=== PATIENT | male | born 1990 | race Caucasian/White ===

== ENCOUNTER → 2021-02-05 07:36 | Outpatient (BNVA) | payer OTHER, SELFPAY | PROVIDERS: Visit Provider Internal Medicine | DX: M25.812 Other specified joint disorders, left shoulder (principal) | CPT/HCPCS: 99202 ==

== ENCOUNTER → 2021-02-13 09:05 | Outpatient (BNVA) | payer OTHER, SELFPAY | PROVIDERS: Visit Provider Internal Medicine | DX: M25.812 Other specified joint disorders, left shoulder (principal) | CPT/HCPCS: 99213 ==

== ENCOUNTER → 2021-08-07 14:37 | Outpatient (BNVA) | payer SELFPAY | PROVIDERS: PCP Hospitalist; Visit Provider Internal Medicine | DX: Z02.79 Encounter for issue of other medical certificate (principal) ==

== ENCOUNTER 2024-05-22 06:57 | Day surgery (SDC) | payer BC, SELFPAY ==
[2024-05-18 15:51] VITALS: BMI 32.1
[2024-05-22 07:10] VITALS: BP 140/99; PULSE 62; RESP 18; TEMP 36.2; O2SAT 97; BMI 32.1
[2024-05-22] MEDS: Lactated Ringers 1,000 ML 100 ML IVCONT (07:30)
--- NOTE | 2024-05-22 09:10 | P.CONAN_ITS ---
Documented by User: Sridevi Braden NP 05/21/24 09:33 HPI - Anesthesia Eval Consult details Narrative: 33yo M for Upper Endoscopy with Balloon Dilitation [facility] Active Problems Active Problems: All Active Problems Stomatitis (Acute) Past Medical History Medical History (Updated 05/22/24 @ 07:24 by Stefany Kearns, RN) Bradycardia Difficulty swallowing Nonalcoholic steatohepatitis Eosinophilic esophagitis GERD (gastroesophageal reflux disease) Surgical History Surgical History (Updated 05/18/24 @ 15:50 by Nurys Fields RN) History of esophagogastroduodenoscopy (EGD) Social History Social History Patient Tobacco Use Status: Never used Tobacco Have you been hit, kicked, punched, or otherwise hurt by someone within the past year? If so, by whom?: No Are you DNR?: No Advance Directives: No Advance Directives Information Provided: Yes Meds Allergies Allergy/AdvReac Type Severity Reaction Status Date / Time No Known Allergies Allergy Verified 03/08/21 12:00 Home Medications ?Medication ?Instructions ?Recorded ?Confirmed ?Last Taken ?Type lansoprazole 30 mg capsule,delayed 30 mg PO BID 05/18/24 05/18/24 Unknown History release Exam Height,Weight and Vital Signs: Height 6 ft 4 in Weight 119.748 kg Assessment and Plan Assessment Anesthesia Assessment: Chart Reviewed Documented by User: Loli Beaulieu DO 05/22/24 09:14 [facility] Past Medical History Medical History (Updated 05/22/24 @ 07:24 by Stefany Kearns RN) Bradycardia Difficulty swallowing Nonalcoholic steatohepatitis Eosinophilic esophagitis GERD (gastroesophageal reflux disease) Family History Family history of problems with anesthesia: No Surgical History Surgical History (Updated 05/18/24 @ 15:50 by Nurys Fields RN) History of esophagogastroduodenoscopy (EGD) History of Problems with Anesthesia: No Social History Social History Patient Tobacco Use Status: Never used Tobacco Have you been hit, kicked, punched, or otherwise hurt by someone within the past year? If so, by whom?: No Are you DNR?: No Advance Directives: No Advance Directives Information Provided: Yes Meds Allergies Allergy/AdvReac Type Severity Reaction Status Date / Time No Known Allergies Allergy Verified 03/08/21 12:00 Home Medications ?Medication ?Instructions ?Recorded ?Confirmed ?Last Taken ?Type lansoprazole 30 mg capsule,delayed 30 mg PO BID 05/18/24 05/18/24 Unknown History release Exam Exam Date and Time: 05/22/24 0910 Height,Weight and Vital Signs: Height 6 ft 4 in Weight 119.748 kg Vital Signs Temperature 97.1 F 05/22/24 07:10 Pulse Rate 62 05/22/24 07:10 Respiratory Rate 18 05/22/24 07:10 Blood Pressure 140/99 H 05/22/24 07:10 Pulse Oximetry 97 05/22/24 07:10 Oxygen Delivery Method Room Air 05/22/24 07:10 Temperature 97.1 F 05/22/24 07:10 Pulse Rate 62 05/22/24 07:10 Respiratory Rate 18 05/22/24 07:10 Blood Pressure 140/99 H 05/22/24 07:10 Pulse Oximetry 97 05/22/24 07:10 Oxygen Delivery Method Room Air 05/22/24 07:10 Airway Mallampati Class: I TM Dist: >3cm Neck ROM: Full Loose/Missing/Broken Teeth: No (patient denies any loose or broken teeth) Heart: S1S2 Lungs: CTAB Assessment and Plan Assessment Anesthesia Assessment: Anesthesia Plan Discussed and Chart Reviewed Final Anesthetic Review Family History of Problems with Anesthesia: No History of Problems with Anesthesia: No NPO: Yes ASA Class: II Final Preanesthetic Review: No Changes in Pt Med Stat, Meds/Allgs Chart Reviewed, Consent Obtained/Reviewed and Anes Risks/Benef Reviewed Patient Risk: Low Procedure Risk: Low Anesthetic Plan Anesthetic Plan: MAC: and Agree w/ Assess. and Plan Disposition: Standard PACU
--- NOTE | 2024-05-22 09:13 | MHC.SHP ---
Pre-Procedural Eval Section A - 24 Hr Update-Section A only Date of Service: 05/22/24 Section B - Complete if H&P > 30 days Chief Complaint: Eosinophilic esophagitis Details of Present Illness: see H&P no changes Relevant Family History (Specify if Yes): No Relevant Social History: None Present Medications: see Short Stay Collaborative assessment Medical History: No relevant PMH History of Previous Operations: No relevant previous surgery Allergies: Allergies Allergy/AdvReac Type Severity Reaction Status Date / Time No Known Allergies Allergy Verified 03/08/21 12:00 Review of Systems Sugical H&P ROS: Negative: Constitution, Cardiovascular, Respiratory, Neurological, Psychiatric, Hem-Onc, Allergic/Immunologic, Gastrointestinal, Genitourinary, Musculoskeletal, Integumentary, Endocrine and Eyes/Ears/Nose/Throat Exam Surgical H&P Exam: Normal: HEENT, Normal: Heart, Normal: Lungs, Normal: Extremities, Normal: Abdomen, Normal: Skin and Normal: Neurological Plan Diagnosis/Plan: Unchanged I have reviewed the history and physical and performed a pertinent physical examination on my patient. No changes have occurred unless specified. Time Spent With Patient Time: Total time managing care of this patient today ____ minutes.
[2024-05-22 09:39] VITALS: BP 121/63; PULSE 65; RESP 16; TEMP 36.1; O2SAT 96
[2024-05-22 09:55] VITALS: BP 131/86; PULSE 66; RESP 17; TEMP 36.3; O2SAT 97
--- NOTE | 2024-05-22 10:20 | OP_ITS ---
DATE OF SERVICE: 05/22/2024 SURGEON: Kleber Guzman MD INDICATIONS: Eosinophilic esophagitis and dysphagia. PREOPERATIVE DIAGNOSIS: POSTOPERATIVE DIAGNOSIS: PROCEDURE PERFORMED: Upper endoscopy with balloon dilation and biopsy. ESTIMATED BLOOD LOSS: COMPLICATIONS: ANESTHESIA: Monitored anesthesia care. ASSISTANTS: SPECIMENS: DESCRIPTION OF PROCEDURE: A history and physical was performed. The risks and benefits of the procedure were explained to the patient and informed consent was obtained. The patient was placed in the left lateral decubitus position. The Olympus video gastroscope was introduced into the esophagus, stomach, and duodenum. Examination was performed and the scope was removed. He tolerated the procedure well and was returned to recovery area in stable condition. FINDINGS: Esophagus: The esophagus showed a ring-like appearance consistent with his known diagnosis of eosinophilic esophagitis. There was no esophagitis. The EG junction appeared patent. The scope passed into the stomach without difficulty. No definite stricture was identified. Stomach: The stomach showed no evidence of masses, ulcers, or polyps. Duodenum: The bulb and 2nd portion were normal. Balloon dilation of the lower esophageal sphincter was performed to 18 and 20 mm with separate inflations of a balloon passed through the scope and inflated to its recommended pressures for 60 seconds at a time. The distal esophagus was widely patent at the termination of the procedure. Biopsies were obtained from the EG junction. IMPRESSION: Eosinophilic esophagitis. RECOMMENDATION: Follow up the biopsy results. MD MOUNA Cole/MIRTHA / [id number]
== END 2024-05-22 10:07 | disposition home or self-care (01) ==
PROVIDERS: Visit Provider Internal Medicine Gastroenterology
PROC: (CPT 43249; principal; 2024-05-22 08:20)
DX: K20.0 Eosinophilic esophagitis (principal); R13.10 Dysphagia, unspecified; K21.9 Gastro-esophageal reflux disease without esophagitis; K75.81 Nonalcoholic steatohepatitis (NASH); R79.89 Other specified abnormal findings of blood chemistry; Z79.899 Other long term (current) drug therapy
CPT/HCPCS: 43249; 43239; 88305; 88313; C1726; J2704

== ENCOUNTER 2025-03-14 10:24 | Outpatient (AMB) | payer BC, SELFPAY ==
--- NOTE | 2025-03-14 10:31 | A.OFFPC_ITS ---
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 Accompanied by his , Rosa, and son, Garrick. 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 They would like labs done for fatigue. +Hair loss. Requests testosterone level. Requests referral for skin exam. He gets a lot of sun exposure as part of his job. Mother had skin cancer. Eye exam scheduled. Dental exam up to date. EOE-prescribed lansoprazole. Followed by Dr. Guzman. Received Tdap in 2019 after a dog bite. Remote history of asthma. He had right eye surgery in childhood for lazy eye. History of left clavicle fracture and left knee dislocated. He's had migraines since his 20s. Assoiated with nausea and light sensitivity. He must wear sunglasses at work. When he gets in his car to drive can't always use them because of the pressure on his head causing a migraine, but the sunlight from driving also does this. He has a form for window tinting he will get to the office. Takes Ibuprofen which is effective. Gets 2-3 mgiraines monthly. ROS: Constitutional: No unexplained weight loss, fever, chills or night sweats. Eyes: No vision changes, blurry vision, double vision, eye pain, eye redness, eye discharge. ENT: No hearing loss, sneezing, congestion, runny nose or sore throat. Respiratory: No shortness of breath, cough or sputum production. Cardiovascular: No chest pain, chest pressure or chest discomfort. No pal pitations or pedal edema. Gastrointestinal: No anorexia, nausea, vomiting or diarrhea. No abdominal pain or blood in stool. Genitourinary: No dysuria, hematuria, urinary frequency. Neurologic: No dizziness, syncope, unilateral weakness, ataxia, numbness or tingling in the extremities. Musculoskeletal: No muscle pain, back pain, joint pain or swelling. Hematologic/Lymphatics: No bleeding or bruising. No painful lymph nodes. Skin: No rash or itching. Endocrine: No cold or heat intolerance. No polyuria or polydipsia. Psychiatric: No depression or anxiety. No SI/HI. Physical exam: Constitutional: Alert, in no distress. Head: Normocephalic. Eyes: Pupils are equal, round and reactive to light. Extraocular muscles intact. Ear, Nose and Throat: Canals clear. TMs normal. Normal nasal mucosa. No nasal discharge. No oral lesions. Neck: Supple, Full range of motion. No lymphadenopathy. No palpable thyroid masses. Respiratory: Clear to auscultation. Cardiovascular: S1 S2 regular. No murmurs. Gastrointestinal: Abdomen soft, non-tender, non-distended. Normal bowel sounds. No palpable masses. Genitourinary: Deferred. Neurologic: No focal neurological deficits. Symmetric patellar reflexes. Moves a ll extremities spontaneously. Sensation intact bilaterally. Skin: Numerous freckles/miles on the arms and back. Musculoskeletal: No gross deformities. Normal range of motion. Extremities: Warm and well perfused. No clubbing, cyanosis or edema. Intact peripheral pulses bilaterally. Psychiatric: Normal mood and affect [facility] Medical History (Updated 03/14/25 @ 22:04 by ALISON Willams) Migraines Fatigue Screening for cardiovascular condition Routine physical examination Fatty liver Bradycardia Difficulty swallowing Nonalcoholic steatohepatitis Eosinophilic esophagitis GERD (gastroesophageal reflux disease) Surgical History (Updated 05/18/24 @ 15:50 by Nurys Fields RN) History of esophagogastroduodenoscopy (EGD) Family History (Updated 03/14/25 @ 10:51 by ALISON Willams) Maternal Grandmother Diabetes Alzheimer dementia Maternal Grandfather Stroke Lung cancer Paternal Grandfather Heart attack Brother Thyroid disease Father Colon polyp Social History (Updated 03/14/25 @ 10:39 by Yarelis Smith MA) Housing: House Alcohol intake: current Alcohol intake frequency: does not drink Patient Tobacco Use Status: Never used Tobacco e-Cigarette/Vaping Use: Never Used Second Hand Smoke Exposure: No service: No Current occupational status: employed 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 1. Little interest or pleasure in doing things: not at all 2. Feeling down, depressed, or hopeless: not at all 3. Trouble falling or staying asleep, or sleeping too much: not at all 4. Feeling tired or having little energy: not at all 5. Poor appetite or overeating: not at all 6. Feeling bad about yourself - or that you are a failure or have let yourself or your family down: not at all 7. Trouble concentrating on things, such as reading the newspaper or watching television: not at all 8. Moving or speaking so slowly that other people could have noticed. Or the opposite - being so fidgety or restless that you have been moving around a lot more than usual: not at all 9. Thoughts that you would be better off or of hurting yourself in some way: not at all Total score: 0 Depression Screening Interpretation: Negative Depression Screening Done: Yes 98404 - PHQ-9 Billing: Yes Source: Developed by Drs. Titi Gee, Nichelle Coon, Stephen Vidal and colleagues, with an educational toyin from [employer]. Thrive Questionnaire Date Thrive assessed: 03/14/25 I am a: Patient What is your living situation today?: I have a steady place to live Within the past 12 months, did the food you bought not last and you didn't have the money to get more?: Never true Within the past 12 months, did you worry whether your food would run out before you got money to buy more?: Never true Do you have trouble paying for medicines?: No Do you have trouble getting transportation to medical appointments?: No Do you have trouble paying your heating and electricity bill?: No Do you have trouble taking care of your child, family member or friend?: No Do you have trouble with day-to-day activities such as bathing, preparing meals, shopping, managing finances, etc.?: No Are you currently unemployed and looking for a job?: No Are you interested in more education?: No Please select the resources that you would like help with: None Currently or been in a relationship where the following occur: No concerns reported THRIVE Score: 0 AUDIT C Alcohol Use Questionnaire (AUDIT-C) 1. How often do you have a drink containing alcohol?: Monthly or less 2. How many drinks containing alcohol do you have on a typical day when you are drinking?: 1 or 2 3. How often do you have six or more drinks on one occasion?: Never Total Score: 1 ROME-7 AMB Questionnaire ROME-7 Date ROME - 7 assessed: 03/14/25 Feeling nervous, anxious, or on edge: 0 = Not at all Not being able to stop or control worryin = Not at all Worrying too much about different things: 0 = Not at all Trouble relaxin = Not at all Being so restless that it is hard to sit still: 0 = Not at all Becoming easily annoyed or irritable: 0 = Not at all Feeling afraid as if something awful might happen: 0 = Not at all Total ROME-7 score (0-4 normal; 5-9 mild; 10-14 moderate; 15-21 severe): 0 Source: Developed by Drs. Titi Gee, Nichelle Coon, Stephen Vidal and colleagues, with an educational toyin from [employer]. ROME-7 Assessment Billing ROME-7 Assessment Tool: ROME-7 Assessment 80099 Physical exam (Primary Care) Vital Signs: Last Vital Signs Temp 97.6 F 03/14/25 10:39 Pulse 66 03/14/25 10:39 BP 110/72 03/14/25 10:39 Pulse Ox 97 03/14/25 10:39 Oxygen Delivery Method Room Air 03/14/25 10:39 BMI result Body Mass Index 32.9 Tobacco/Smoking Status: Tobacco use Status Tobacco use date assessed 03/14/25 03/14/25 10:44 Patient Tobacco Use Status Never used Tobacco 03/14/25 10:39 e-Cigarette/Vaping Use Never Used 03/14/25 10:44 PHQ-9: PHQ-9 Score PHQ-9: Total score 0 03/14/25 10:46 Depression Screening Interpretation: Negative Thrive Assessment: Date of Thrive Assessment Date Thrive assessed 03/14/25 03/14/25 10:34 Currently or been in a relationship where the following occur: No concerns reported Coding Level of Care Code New Pt Level 2 (80942) New Pt Prev Care 18-39yr(79687 Diagnoses Routine physical examination Z00.00 Screening for cardiovascular condition Z13.6 Chronic fatigue R53.82 Fatigue type: chronic, unspecified Migraine without aura and without status migrainosus, not intractable G43.009 Migraine type: migraine (< 15 days per month) without aura Status migrainosus presence: without status migrainosus Intractability: not intractable Eosinophilic esophagitis K20.0 Additional Codes ROME-7 Assessment Billing - ROME-7 Assessment Tool: ROME-7 Assessment 57182 ([id number]) PHQ-9 - 62500 - PHQ-9 Billing: Yes ([id number]) Assessment & Plan Assessment & Plan (1) Routine physical examination: Code(s): Z00.00 - Encounter for general adult medical examination without abnormal findings Category: Medical Plan: Patient is seen today for a routine physical. As part of this visit we reviewed the following issues, which are considered and essential part of preventative health in this age group: - Testicular cancer screening, which includes self exam teaching - Screening for colon cancer - Blood pressure screening annually - Cholesterol screening - Nutritional and exercise counseling - Counseling of injury prevention including fire prevention, smoke alarms and seat belt usage - Screening for depression - Education about skin cancer - Recommendations about immunizations - Recommendation of an eye exam - Screening for substance abuse (2) Screening for cardiovascular condition: Code(s): Z13.6 - Encounter for screening for cardiovascular disorders Category: Medical (3) Fatigue: Code(s): R53.83 - Other fatigue Category: Medical Qualifiers: Fatigue type: chronic, unspecified Qualified Code(s): R53.82 - Chronic fatigue, unspecified Plan: Check labs. (4) Migraines: Code(s): G43.909 - Migraine, unspecified, not intractable, without status migrainosus Category: Medical Qualifiers: Migraine type: migraine (< 15 days per month) without aura Status migrainosus presence: without status migrainosus Intractability: not intractable Qualified Code(s): G43.009 - Migraine without aura, not intractable, without status migrainosus Plan: Continue Ibuprofen which is effective. Stressed importance of sleep, hydration, nutrition. He will drop of the form for tinting windows at the office. (5) Eosinophilic esophagitis: Code(s): K20.0 - Eosinophilic esophagitis Category: Medical Plan: Continue PPI. Followed by GI. Plan Follow up in 1 year for CPE. Orders: Orders Complete Blood Count Auto Diff Today R53.83 - Other fatigue, Z00.00 - Encounter for general adult medical examination without abnormal findings, Z13.6 - Encounter for screening for cardiovascular disorders Testosterone, Free/Total Today R53.83 - Other fatigue, Z00.00 - Encounter for general adult medical examination without abnormal findings, Z13.6 - Encounter for screening for cardiovascular disorders Vitamin D 25-OH (D2 and D3) Today M85.80 - Other specified disorders of bone density and structure, unspecified site, R53.83 - Other fatigue, Z00.00 - Encounter for general adult medical examination without abnormal findings, Z13.6 - Encounter for screening for cardiovascular disorders Vitamin B12 and Folate Today D64.9 - Anemia, unspecified, R53.83 - Other fatigue, Z00.00 - Encounter for general adult medical examination without abnormal findings, Z13.6 - Encounter for screening for cardiovascular disorders Lipid Panel Today E78.5 - Hyperlipidemia, unspecified, R53.83 - Other fatigue, Z00.00 - Encounter for general adult medical examination without abnormal findings, Z13.6 - Encounter for screening for cardiovascular disorders TSH reflex Free T4 Today R53.83 - Other fatigue, Z00.00 - Encounter for general adult medical examination without abnormal findings, Z13.6 - Encounter for scree arjun for cardiovascular disorders Comprehensive Met. Panel Today R53.83 - Other fatigue, Z00.00 - Encounter for general adult medical examination without abnormal findings, Z13.6 - Encounter for screening for cardiovascular disorders
[2025-03-14 10:39] VITALS: BP 110/72; PULSE 66; TEMP 36.4; O2SAT 97; BMI 32.9
--- OUTSIDE RECORDS SUMMARY | 2025-03-14 11:13 | XMS_ITS | Patient Health Record ---
Author Organization [facility] Address [address] [place] [phone] Care Team Providers Care Music Orchestrator Name Role Phone Raleigh Jacinto Primary Care Provider Kleber De León Jr Unavailable [phone] Allergies No Known Allergies Results Component Value Reference Range Notes Pathology Reviewed date:05/31/2024 11:09:57 AM Interpretation: Performing Lab:[facility], [address] [place] [phone] Notes/Report: Reason For Referral No Information Medications Medication SIG (Take, Route, Fr equency, Duration) Notes Start Date End Date Status Lansoprazole 30 MG 1 capsule before a m eal Orally Twice a day for 30 day(s) 03/28/2024 Active Lansoprazole 30 MG 1 capsule before a m eal Orally Once a day for 30 day(s) Active Immunizations Vaccine Route Administration Date Status Comme nts Influenza Unknown 03/28/2024 Refused Social History Tobacco Use: Social History Observation Description Date Details (start date - stop date) Never Smoker NA - NA Tobacco Use/Smoking Question Answer Notes Patient is a nonsmoker Alcohol Screen Question Answer Notes Did you have a drink contain ing alcohol in the past year? Yes How often did you have a dri nk containing alcohol in the past year? Monthly or less (1 point) How many drinks did you have on a typical day when you were drinking in the past year? 1 or 2 drinks (0 point) How often did you have 6 or more drinks on one occasion in the past year? Never (0 point) Points 1 Interpretation Negative Problems Problem Type SNOMED Code ICD Code Onset Dates Problem Status W/U Status Risk Notes Problem [id number] Eosinophilic esophagitis (K20.0) Active confirmed Problem Dysphagia (13212219) Dysphagia (R13.10) Active confirmed Problem [id number] Elevated LFTs (R79.89) Active confirmed Vital Signs Temperature 98.4 degrees Fahrenheit 03/28/2024 Blood pressure diastolic 00 mm Hg 03/28/2024 Height 6 ft 4 in in 03/28/2024 Blood pressure systolic 000 mm Hg 03/28/2024 Weight 264 lb 4 oz lbs 03/28/2024 BMI 32.16 kg/m2 03/28/2024 Encounters Encounter Location Date Provider Diagnosis [facility] [place] Outpatient [address] [place], [place] [id number] 05/22/2024 Kleber Guzman Jr Eosinophilic esophagitis K20.0 and Dysphagia R13.10 [facility] [address] [place] [phone] 03/28/2024 Kleber Guzman Jr Eosinophilic esophagitis K20.0 and Elevated LFTs R79.89 [facility] [address] [place] [phone] 05/31/2024 Kleber Guzman Jr Assessments Encounter Date Diagnosis (ICD Code) Assessment Notes Treatment Notes Treatment Clinical Notes Section Notes 05/22/2024 Eosinophilic esophagitis (ICD-10 - K20.0) 05/22/2024 Dysphagia (ICD-10 - R13.10) 03/28/2024 Eosinophilic esophagitis (ICD-10 - K20.0) We discussed eosinophilic esophagitis today in detail. We discussed treatment with proton pump inhibitors as first line therapy with possible oral budesonide if necessary. We will arrange followup upper endoscopy because of dysphagia. Balloon dilation can be arranged at that time. He understands risks and benefits and agrees to proceed. He can increase his lansoprazole to 30 mg b.i.d. for a month to see if this makes a difference in his symptoms, if not a trial of budesonide could be arranged. We discussed fatty liver today. We discussed alcohol use. We recommended he continue to follow a low-fat diet, exercise, watch his weight, and avoid alcohol. Followup laboratory studies with fibrosis testing will be arranged. Further evaluation with ultrasound can be undertaken pending these results. Followup will be in 6-12 months pending the results of the endoscopy. 03/28/2024 Elevated LFTs (ICD-10 - R79.89) We discussed eosinophilic esophagitis today in detail. We discussed treatment with proton pump inhibitors as first line therapy with possible oral budesonide if necessary. We will arrange followup upper endoscopy because of dysphagia. Balloon dilation can be arranged at that time. He understands risks and benefits and agrees to proceed. He can increase his lansoprazole to 30 mg b.i.d. for a month to see if this makes a difference in his symptoms, if not a trial of budesonide could be arranged. We discussed fatty liver today. We discussed alcohol use. We recommended he continue to follow a low-fat diet, exercise, watch his weight, and avoid alcohol. Followup laboratory studies with fibrosis testing will be arranged. Further evaluation with ultrasound can be undertaken pending these results. Followup will be in 6-12 months pending the results of the endoscopy. Plan Of Treatment Pending Test Test Name Order Date LIVER PROFILE 03/28/2024 CBC w/o DIFF 03/28/2024 Liver Fibrosis Pnl 03/28/2024 Future Test Test Name Order Date UPPER GI ENDOSCOPY BALLOOON DILATION OF ESOPH 03/28/2024 Insurance Providers Payer Name Payer Address Payer Phone Subscriber Number Group Number Insured Name Patient Relationship to Insured Coverage Start Date Coverage End Date [employer] [address] [place] [address] [id number] CHOCO HANNON Self - patient is the insured Medical (General) History Surgical History Surgery Date(Month/Year)
--- OUTSIDE RECORDS SUMMARY | 2025-03-14 11:13 | XMS_ITS | Clinical Summary ---
Author Organization [facility] Address [address] [place] [phone] Phone Care Team Providers Care It Sales Representative Name Role Phone Nory Gordon MD Primary Care Provider Unava ilable Immunizations Immunization Administration Dates Next Due DTP 05/10/1994, 3,03/13/1993,12/31 DTaP 5 11/11/1997 Hep B, ped/adol 07/31/1993,1992,1992 Hib (PRP-T) 02/05/1994, 3,03/16/1993,12/31 Influenza, injectable, trivalent 009,06/04/2008,06/07/2007,06/15 MMR 11/01/1996,02/05/1994 Meningococcal Conj (Menactra) MCV4P 03/08/2007 OPV 11/11/1997, 4,03/16/1993,12/31 Td (adult) (MBL), 2 Lf tetan us toxoid, PF, adsorbed 12/02/2004 Tdap 03/08/2007 Family History Relation Name Status Comments Brother Alive Brother: Asthma Father Alive Father: Hyperli pidemia Mother Alive Mother: leukope niaand neutropenia Social History Tobacco Use Types Packs/Day Years Used Date Smoking Tobacco: Never Assessed Sex and Gender Information Value Date Recorded Sex Assigned at Not on file Legal Sex Male 4:36 PM EDT Gender Identity Not on file Sexual Orientation Not on file Last Filed Vital Signs Vital Sign Reading Time Taken Comments Blood Pressure 114/70 10/01/2010 12:00 AM EST Pulse 72 10/01/2010 12:00 AM EST Temperature - - Respiratory Rate - - Oxygen Saturation - - Inhaled Oxygen Concentration - - Weight 111 kg (245 lb) 10/01/2010 12:00 AM EST Height 191.8 cm (6' 3.5 ) 10/01/2010 12:00 AM ES T Body Mass Index 30.22 10/01/2010 12:00 AM EST Plan of Treatment Health Maintenance Due Date Last Done Comments Varicella Vaccines (1 of 2 - 13+ 2-dose series) 2005 DTaP,Tdap,and Td Vaccines (7 - Td or Tdap) 03/08/2017 03/08/2007, 12/02/2004, 11/11/1997, Additional history exists COVID-19 Vaccine ( - 2023- season) 2024 Influenza Vaccines (#1) 2025 06/02/20, 06/04/2008, 06/07/2007, Additional history exists Hepatitis B Vaccines Completed 07/31/1993, 1992, 1992 HIB Vaccines Completed 02/05/1994, 04/22, 03/16/1993, Additional history exists MMR Vaccines Completed 11/01/1996, 02/05/1994 IPV Vaccines Completed 11/11/1997, 04/22, 03/16/1993, Additional history exists Meningococcal Vaccine Aged Out 03/08/2007 No jennifer liat eligible based on patient's age to complete this topic HPV Vaccines Aged Out No longer eligi ble based on patient's age to complete this topic Hepatitis A Vaccines Aged Out No long er eligible based on patient's age to complete this topic Men B Vaccine Aged Out No longer elig ible based on patient's age to complete this topic Pneumococcal Vaccine Aged Out No long er eligible based on patient's age to complete this topic Care Teams It Sales Representative Relationship Specialty Start Date End Date Nory Gordon MD PCP - General 04/01/17
== END 2025-03-14 11:08 | disposition home or self-care (01) ==
LOC: HO.HMCFM 10:25
PROVIDERS: PCP Physician Assistant Medical; Visit Provider Physician Assistant Medical
DX: Z00.00 Encounter for general adult medical examination without abnormal findings (principal); G43.009 Migraine without aura, not intractable, without status migrainosus; Z13.6 Encounter for screening for cardiovascular disorders; R53.82 Chronic fatigue, unspecified; K20.0 Eosinophilic esophagitis

== ENCOUNTER → 2025-03-14 10:24 | Outpatient (BNVA) | payer BC, SELFPAY | PROVIDERS: PCP Physician Assistant Medical; Visit Provider Physician Assistant Medical | DX: Z00.00 Encounter for general adult medical examination without abnormal findings (principal); R53.82 Chronic fatigue, unspecified; G43.009 Migraine without aura, not intractable, without status migrainosus; K20.0 Eosinophilic esophagitis; Z13.31 Encounter for screening for depression; Z13.39 Encounter for screening examination for other mental health and behavioral disorders | CPT/HCPCS: 96127 ==

== ENCOUNTER 2025-03-14 11:19 | Outpatient (REF) | payer BC, SELFPAY ==
[2025-03-14 14:10] LABS: MANUAL DIFF FLAG NO
[2025-03-14 14:12] LABS: Hematocrit 45.7 % (42.0-52.0); Hemoglobin 15.5 g/dl (14.0-18.0); Imm Gran Abs Auto 0.02 X10*3/uL (0.00-0.03); Imm Gran Pct Auto 0.2 % (0.0-0.4); Lymphocytes Absolute Auto 2.7 X10*3/uL (1.2-4.9); Mean Corpuscular HGB Conc 33.9 g/dl (31.0-36.0); Mean Corpuscular Hemoglobin 29.2 pg (27.0-33.0); Mean Corpuscular Volume 86.2 fL (80.0-98.0); NRBC Abs Auto 0.000 X10*3/uL (0.0-0.012); NRBC Pct Auto 0.0 /100WBC (0.0-0.2); Platelet Count 326 X10*3/uL (160-400); Red Blood Count 5.30 X10*6/uL (4.60-5.80); White Blood Count 8.5 X10*3/uL (4.8-10.8)
[2025-03-14 14:36] LABS: Alanine Aminotransferase 63 U/L (0-40); Albumin Level 4.9 g/dL (3.5-5.0); Alkaline Phosphatase 76 U/L (39-117); Anion Gap 10 (12-20); Aspartate Amino Transferase 47 U/L (5-37); Blood Urea Nitrogen 9 mg/dL (9-16); Calcium 9.7 mg/dL (8.4-10.2); Carbon Dioxide 27 mmol/L (22-29); Chloride 108 mmol/L (96-108); Cholesterol 188 mg/dL (<200); Estimated Glomerular Filt Rate > 60; HDL Cholesterol 52 mg/dL (>40); Potassium 4.1 mmol/L (3.3-5.1); Sodium 141 mmol/L (135-145); Total Protein 7.3 g/dL (6.5-8.0); Triglycerides 114 mg/dL (<150)
[2025-03-14 14:59] LABS: Folate 8.2 ng/mL (> or = 4.0); Vitamin B12 683 pg/mL (200-900)
[2025-03-19 11:13] LABS: Vitamin D 25-OH, D2 <4 ng/mL; Vitamin D 25-OH, D3 41 ng/mL; Vitamin D 25-OH, Total 41 ng/mL (30-100)
[2025-03-20 18:53] LABS: Testosterone, Free 74.4 pg/mL (35.0-155.0)
== END 2025-03-14 11:20 | disposition home or self-care (01) ==
LOC: HO.WFDLDS 11:19
PROVIDERS: Visit Provider Physician Assistant Medical
DX: Z00.00 Encounter for general adult medical examination without abnormal findings (principal); Z13.6 Encounter for screening for cardiovascular disorders; R53.83 Other fatigue; M85.80 Other specified disorders of bone density and structure, unspecified site; D64.9 Anemia, unspecified; E78.5 Hyperlipidemia, unspecified
CPT/HCPCS: 36415; 80053; 80061; 82306; 82607; 82746; 84402; 84403; 84443; 85025